=== PATIENT | female | born 1985 | race Caucasian/White ===

== ENCOUNTER 2018-05-08 10:08 | Inpatient (IN) ==
[2018-05-08] MEDS ORDERED: Citric Acid/Sodium Citrate Liq 30 ML UDC PO SCH (12:00)
[2018-05-08] MEDS ORDERED: ceFAZolin Inj 2,000 MG in Sodium Chlor 0.9% Inj 80 ML IV.SIG SCH (12:00)
[2018-05-08 12:10] LABS: Baso % (Auto) 0.3 % (0.0-2.0); Eos # (Auto) 0.1 th/mm3 (0.0-0.4); Eos % (Auto) 0.9 % (0.0-4.0); Hemoglobin 11.8 gm/dL (11.6-15.3); Lymph % (Auto) 18.5 % (9.0-44.0); Mean Corpuscular HGB Conc 34.6 % (32.0-36.0); Mean Corpuscular Hemoglobin 30.3 pg (27.0-34.0); Mean Corpuscular Volume 87.7 fL (80.0-100.0); Mean Platelet Volume 8.4 fL (7.0-11.0); Mono # (Auto) 0.7 th/mm3 (0.0-0.9); Mono % (Auto) 6.5 % (0.0-8.0); Neut % (Auto) 73.8 % (16.0-70.0); Platelet Count 213 th/mm3 (150-450); Red Blood Count 3.87 mil/mm3 (4.00-5.30); Red Cell Distribution Width 14.1 % (11.6-17.2); White Blood Count 10.8 th/mm3 (4.0-11.0)
--- NOTE | 2018-05-08 13:44 | P.HPOB ---
History of Present Illness Service: obstetrics Primary Care Physician: Faby Bingham History of Present Illness: 32 yo with breech infant at 39 2/7 weeks with attempted version if not successful will perform CS - Inpatient Certification I certify that the inpatient services were ordered in accordance with Medicare regulations governing the order. This includes certification that hospital inpatient services are reasonable and necessary and in the case of services not specified as inpatient-only under 42 CFR 419.22(n), that they are appropriately provided as inpatient services in accordance to with the 2-midnight benchmark under 43 CFR 412.3(e) Estimated Total Length of Stay (Days): 2 Plans for Post Hospital Care: Home Review of Systems All other systems reviewed negative except as stated in HPI PMFSH - Medical / Surgical Hx Neg / Unobtainable Medical Problems Denied: Yes - Medical History Medical History: Medical History (Last Updated 05/08/18 @ 13:41 by Alen Amador MD) Knee cartilage, torn, left - Tobacco History Second Hand Smoke Exposure: No Tobacco Use In Past 30 Days: No Medications and Allergies Active Medications: Active Medications Citric Acid/Sodium Citrate (Sodium Citrate/Citric Acid Liq) 30 ml PO FLOWER P[employer] [facility] Stop: 05/12/18 11:59 Cefazolin Sodium 2,000 mg/ (Sodium Chloride) 100 mls @ 200 mls/hr IV.SIG [employer]OWER [employer] [facility] Stop: 05/12/18 11:59 Lactated Ringer's (Lr 1000 Ml Inj) 1,000 mls @ 150 mls/hr IV.CONT .Q6H40M [facility] Allergies Allergy/AdvReac Type Severity Reaction Status Date / Time No Known Allergies Allergy Verified 05/08/18 10:48 Home Medications Medication Instructions Recorded Confirmed Type 05/08/18 History Exam Vital signs: Vital Signs 05/08/18 10:52 Temperature 98.8 F Pulse Rate 83 Respiratory Rate 20 Blood Pressure 119/81 Intake & Output 05/07/18 05/08/18 05/08/18 18:59 06:59 18:59 Weight 83.915 kg - Constitutional no acute distress - Routine HEENT Exam Head: Present: normocephalic - Routine Neck Exam Present: supple - Routine Respiratory Exam Present: CTA bilaterally - Routine Cardiovascular Exam Present: RRR - Routine Abdominal Exam Present: soft, normoactive bowel sounds - Routine Extremities Exam Present: full ROM - Routine Skin Exam Present: intact - Routine Neurological Exam Present: alert, oriented X3 - Additional findings Additional findings: sandra breech on US Results - Labs CBC & Chem 7: 05/08/18 10:49 Labs: Laboratory Results - last 24 hr 05/08/18 05/08/18 10:49 10:49 WBC 10.8 RBC 3.87 L Hgb 11.8 Hct 34.0 L MCV 87.7 MCH 30.3 MCHC 34.6 RDW 14.1 Plt Count 213 MPV 8.4 Neut % (Auto) 73.8 H Lymph % (Auto) 18.5 [place] % (Auto) 6.5 Eos % (Auto) 0.9 Baso % (Auto) 0.3 Neut # (Auto) 8.0 H Lymph # (Auto) 2.0 [place] # (Auto) 0.7 Eos # (Auto) 0.1 Baso # (Auto) 0.0 WBC Differential . Differential Comment Auto diff final Blood Type A Positive Blood Type Recheck Required Antibody Screen Negative Caprini VTE Risk Assessment Caprini VTE Risk Assessment: No/Low Risk (score <= 1) Caprini Risk Assessment Model: Point Value = 1 Point Value = 2 Point Value = 3 Point Value = 5 Age 41-60 Minor surgery BMI > 25 kg/m2 Swollen legs Varicose veins or History of unexplained or recurrent spontaneous Oral contraceptives or hormone replacement Sepsis (< 1 month) Serious lung disease, including pneumonia (< 1 month) Abnormal pulmonary function Acute myocardial infarction Congestive heart failure (< 1 month) History of inflammatory bowel disease Medical patient at bed rest Age 61-74 Arthroscopic surgery Major open surgery (> 45 min) Laparoscopic surgery (> 45 min) Malignancy Confined to bed (> 72 hours) Immobilizing plaster cast Central venous access Age >= 75 History of VTE Family history of VTE Factor V Leiden Prothrombin [id number] Lupus anticoagulant Anticardiolipin antibodies Elevated serum homocysteine Heparin-induced thrombocytopenia Other congenital or acquired thrombophilia Stroke (< 1 month) Elective arthroplasty Hip, pelvis, or leg fracture Acute spinal cord injury (< 1 month) Prophylaxis Regimen: Total Risk Factor Score Risk Level Prophylaxis Regimen 0-1 Low Early ambulation 2 Moderate Order ONE of the following: *Sequential Compression Device (SCD) *Heparin 5000 units SQ BID 3-4 Higher Order ONE of the following medications: *Heparin 5000 units SQ TID *Enoxaparin/Lovenox 40 mg SQ daily (WT < 150 kg, CrCl > 30 mL/min) *Enoxaparin/Lovenox 30 mg SQ daily (WT < 150 kg, CrCl > 10-29 mL/min) *Enoxaparin/Lovenox 30 mg SQ BID (WT < 150 kg, CrCl > 30 mL/min) AND/OR *Sequential Compression Device (SCD) 5 or more Highest Order ONE of the following medications: *Heparin 5000 units SQ TID (Preferred with Epidurals) *Enoxaparin/Lovenox 40 mg SQ daily (WT < 150 kg, CrCl > 30 mL/min) *Enoxaparin/Lovenox 30 mg SQ daily (WT < 150 kg, CrCl > 10-29 mL/min) *Enoxaparin/Lovenox 30 mg SQ BID (WT < 150 kg, CrCl > 30 mL/min) AND *Sequential Compression Device (SCD) Assessment and Plan - Diagnosis (1) Breech Code(s): O32.1XX0 - Maternal care for breech presentation, not applicable or unspecified Status: Acute (2) Breech presentation Code(s): O32.1XX0 - Maternal care for breech presentation, not applicable or unspecified Status: Acute Plan: unsuccessful version for CS (1) Breech Qualifiers: Fetus number: single or unspecified fetus Qualified Code(s): O32.1XX0 - Maternal care for breech presentation, not applicable or unspecified (2) Breech presentation Qualifiers: Fetus number: single or unspecified fetus Qualified Code(s): O32.1XX0 - Maternal care for breech presentation, not applicable or unspecified
[2018-05-08] MEDS ORDERED: Morphine Sulfate PF Inj 5 MG/10 ML Ampul ONE (14:14)
[2018-05-08] MEDS ORDERED: Naloxone Inj 0.4 MG/ML Vial IV.PUSH PRN (14:43)
[2018-05-08 15:20] LABS: Cord Arterial Blood HCO3 26.2
[2018-05-08] MEDS ORDERED: Simethicone 80 MG Chew Tablet PO PRN (15:21)
[2018-05-08] MEDS ORDERED: Oxytocin 30 Units/500ml Premix 30 UNITS/500 ML BAG IV.SIG ONE (15:21)
--- NOTE | 2018-05-08 15:24 | P.OBDELI ---
Procedure Note - Pre Op Diagnosis (1) Breech presentation (2) Failed external cephalic version Performed by: Alen Amador MD Procedure: Primary Low Transverse Section Indication for Delivery: malposition Informed Consent Obtained: For anesthesia, For procedure Confirmed Correct: Patient, Procedure, Site, Time-out taken Anesthesia: Spinal Monitoring During Procedure: Blood pressure monitoring, bus monitor Urinary Catheter: Inserted using sterile technique, To dependent drainage Sterile Preparation: Duraprep Position: Supine with wedge to left side - Operative Features Skin Incision: Pfannenstiel Uterine Incision: Low transverse w/knife / blunt ext Membranes Ruptured: Artificially Presentation: Breech Status of : Viable Placenta Delivered: Intact Medications: Antibiotics, Oxytocin Procedure Tolerated: Well Maternal Condition: Stable Baby Condition: Stable - Infant Infant: Male, Single
--- NOTE | 2018-05-08 16:06 | MP ---
cc: Alen Amador MD DATE OF OPERATION: 05/08/2018 PROCEDURE: Primary low transverse section. PREOPERATIVE DIAGNOSES: Failed external cephalic version sandra breech presentation. POSTOPERATIVE DIAGNOSES: Failed external cephalic version sandra breech presentation. SURGEON: Alen Amador MD ESTIMATED BLOOD LOSS: 500 mL COMPLICATIONS: None. FINDINGS: Live male infant, sandra breech presentation. Apgars are recorded with nursery. ANESTHESIA: Spinal, Dimitri Mccullough. PROCEDURE IN DETAIL: After informed consent, the patient was taken to the operating room where she was placed under spinal anesthesia. Prior to this, the patient had an attempted cephalic version, 3 attempts, none of which could elevate the buttocks out of the pelvis, so the patient had been counseled and prepped and draped and brought to the operating room where she was prepped and draped in normal sterile fashion. Spinal was working well. Timeout was taken. A Pfannenstiel skin incision was carried sharply through skin to the fascia. The fascia nicked in the midline and the incision extended laterally using [place] scissors. Rectus muscle were dissected off the fascia with blunt and sharp dissection. Rectus muscle were in the midline. Peritoneum was entered bluntly with the finger, the incision extended laterally using blunt traction. A hand was placed in the abdomen. The uterus was noted to be midline. A bladder flap was created by dissecting the bladder off the lower uterine segment. A low transverse uterine incision was then made, carried out sharply into the uterine cavity, clear fluid was noted. A hand was placed into the uterus and the buttocks was brought to the incision and using fundal pressure, the 's leg had to be delivered first, the left leg, then the right leg was delivered. The baby was delivered to the level of the scapulas. The was rotated to the right and left arm was flexed across the chest. The infant was rotated to the left and the right arm was flexed across to the chest. Using Mauriceau maneuver and fundal pressure, the head delivered without difficulty. The attempt to wait 45 seconds was shortened secondary to the baby not taking a quick breath, despite drying and stimulating the baby still did not breathe, so the cord was clamped and cut and then was handed to pediatrics in attendance. Cord blood was collected. Placenta and cord gas were collected. Placenta was delivered manually. Uterus exteriorized, wiped free from all remaining products of conception. Uterine incision was then closed in a running locked stitch with chromic suture. Good hemostasis was achieved. The uterus was placed back in the abdomen and noted to be hemostatic. The peritoneum was closed with Vicryl suture. The fascia was closed with Vicryl suture, and the skin was closed with subcuticular stitch. Each layer was noted to be hemostatic prior to the closure and the patient tolerated the procedure well. Alen Amador MD JWM/ct , 03:28 PM , 03:36 PM
[2018-05-08] MEDS ORDERED: Oxytocin 30 Units/500ml Premix 30 UNITS/500 ML BAG ONE (16:37)
[2018-05-08 20:02] LABS: Bacteria,Urine Rare /hpf; Bilirubin,Urine Negative (Negative); Clarity,Urine Hazy (Clear); Color,Urine Yellow (Yellw/Straw); Glucose,Urine (UA) Negative (Negative); Leukocyte Esterase,Urine Large (Negative); Nitrite,Urine Negative (Negative); Specific Gravity,Urine 1.012 (1.002-1.035); Squamous Epithelial Cell,Urine 2 /hpf (0-5)
[2018-05-08 20:10] LABS: Amphetamine Screen,Urine Neg (Neg); Barbiturate Screen,Urine Neg (Neg); Cannabinoid Screen,Urine Neg (Neg); Cocaine Screen,Urine Neg (Neg)
[2018-05-08 20:11] LABS: Opiate Screen,Urine Neg (Neg)
[2018-05-08] MEDS ORDERED: Oxytocin 30 Units/500ml Premix 30 UNITS/500 ML BAG IV.SIG PRN (20:21)
[2018-05-09] MEDS: Ibuprofen 600 MG Tablet PO PRN ×3 (06:51→22:37)
[2018-05-09 07:23] LABS: Baso % (Auto) 0.2 % (0.0-2.0); Eos % (Auto) 0.1 % (0.0-4.0); Hematocrit 27.4 % (35.0-46.0); Hemoglobin 9.9 gm/dL (11.6-15.3); Lymph # (Auto) 2.4 th/mm3 (1.0-4.8); Lymph % (Auto) 15.3 % (9.0-44.0); Mean Corpuscular Hemoglobin 31.2 pg (27.0-34.0); Mean Corpuscular Volume 86.7 fL (80.0-100.0); Mean Platelet Volume 7.5 fL (7.0-11.0); Mono % (Auto) 6.7 % (0.0-8.0); Neut # (Auto) 12.1 th/mm3 (1.8-7.7); Neut % (Auto) 77.7 % (16.0-70.0); Platelet Count 187 th/mm3 (150-450); Red Blood Count 3.16 mil/mm3 (4.00-5.30); Red Cell Distribution Width 13.9 % (11.6-17.2); White Blood Count 15.6 th/mm3 (4.0-11.0)
[2018-05-09 08:19] LABS: Lymphocytes 14 % (9-44); Monocytes 4 % (0-8); Myelocytes 1 % (0-0)
[2018-05-09 08:20] LABS: Platelet Estimate Normal (Normal); Platelet Morphology Normal (Normal)
--- NOTE | 2018-05-09 09:09 | P.PNOB ---
Subjective Post day: 1 Interval history: doing well ppd #1 for CS for breech, breast feeding Objective Vital Signs/I&O: Vital Signs 05/08/18 10:52 05/08/18 15:25 05/08/18 15:39 Temperature 98.8 F 97.8 F Pulse Rate 83 19 L 79 Respiratory Rate 20 17 19 Blood Pressure 119/81 119/56 L 116/53 L 05/08/18 15:47 05/08/18 16:01 05/08/18 16:16 Temperature Pulse Rate 74 59 L Respiratory Rate 18 16 Blood Pressure 131/55 L 117/68 131/79 05/08/18 16:22 05/08/18 16:31 05/08/18 16:32 Temperature Pulse Rate 57 L 54 L Respiratory Rate 20 18 Blood Pressure 114/74 05/08/18 16:33 05/08/18 17:31 05/08/18 19:58 Temperature 97.7 F 97.8 F Pulse Rate 57 L 62 Respiratory Rate 18 18 Blood Pressure 115/76 127/76 05/08/18 20:51 05/09/18 00:00 05/09/18 02:00 Temperature 97.5 F L 98.6 F Pulse Rate 71 Respiratory Rate 18 18 Blood Pressure 127/71 05/09/18 05:00 05/09/18 07:54 Temperature 98.9 F 97.6 F Pulse Rate 82 70 Respiratory Rate 17 20 Blood Pressure 118/68 106/64 Intake & Output 05/08/18 05/09/18 05/09/18 18:59 06:59 18:59 Weight 83.915 kg Result Diagrams: 05/09/18 07:11 Objective Remarks: GENERAL: Well-nourished, well-developed patient. CARDIOVASCULAR: Regular rate and rhythm without murmurs, gallops, or rubs. RESPIRATORY: Breath sounds equal bilaterally. No accessory muscle use. ABDOMEN/GI: Abdomen soft, non-tender. Fundus: Firm, non-tender at umbilicus. GENITOURINARY: Light to moderate bleeding. EXTREMITIES: No cyanosis or edema, non-tender, without signs of DVT. Medications and IVs: Active Medications Citric Acid/Sodium Citrate (Sodium Citrate/Citric Acid Liq) 30 ml PO [employer] [facility] Stop: 05/12/18 11:59 Last Admin: 05/08/18 14:15 Dose: 30 ml Diphenhydramine HCl (Benadryl) 50 mg PO Q6H PRN PRN Reason: MILD TO MODERATE ITCHING Stop: 05/09/18 14:42 Diphenhydramine HCl (Benadryl Inj) 25 mg IV.PUSH Q6H PRN PRN Reason: MILD TO MODERATE ITCHING Stop: 05/09/18 14:42 Diphtheria/Pertussis/Tetanus Vacc (Boostrix Vaccine Inj) 0.5 ml IM .ONCE ONE Stop: 05/09/18 16:01 Cefazolin Sodium 2,000 mg/ (Sodium Chloride) 100 mls @ 200 mls/hr IV.SIG [facility] Stop: 05/12/18 11:59 Lactated Ringer's (Lr 1000 Ml Inj) 1,000 mls @ 150 mls/hr IV.CONT .Q6H40M [facility] Last Admin: 05/08/18 14:16 Dose: 150 mls/hr Oxytocin (Pitocin 30 Units/Ns 500 Ml Premix) 30 units in 500 mls @ 100 mls/hr IV.SIG PRN PRN PRN Reason: Heavy bleeding Stop: 05/09/18 20:20 Last Admin: 05/08/18 16:38 Dose: 100 mls/hr Lactated Ringer's (Lr 1000 Ml Inj) 1,000 mls @ 100 mls/hr IV.CONT .Q10H [facility] Stop: 05/09/18 16:20 Last Admin: 05/08/18 22:10 Dose: 100 mls/hr Ibuprofen (Motrin) 600 mg PO Q6HR PRN PRN Reason: cramping Last Admin: 05/09/18 06:51 Dose: 600 mg Ketorolac Tromethamine (Toradol Inj) 30 mg IM Q6H PRN PRN Reason: SEE LABEL COMMENTS Measles/Mumps/Rubella Vaccine Live (M-M-R Ii Vaccine Inj) 0.5 ml SQ .ONCE ONE Stop: 05/09/18 16:01 Miscellaneous Information (Misc Nursing Information) 1 each OTHER UNSCH PRN PRN Reason: SEE LABEL COMMENTS Stop: 05/09/18 14:42 Miscellaneous Information (Misc Nursing Information) 1 each OTHER UNSCH PRN PRN Reason: SEE LABEL COMMENTS Stop: 05/09/18 14:42 Naloxone HCl (Narcan Inj) 0.4 mg IV.PUSH UNSCH PRN PRN Reason: SEE LABEL COMMENTS Stop: 05/09/18 14:42 Ondansetron HCl (Zofran Inj) 4 mg IV.PUSH Q6H PRN PRN Reason: NAUSEA OR VOMITING Oxycodone/Acetaminophen (Percocet 5/325 Mg) 1 tab PO Q4H PRN PRN Reason: PAIN SCALE 3 TO 5 Oxycodone/Acetaminophen (Percocet 5/325 Mg) 2 tab PO Q4H PRN PRN Reason: PAIN SCALE 6 TO 10 Simethicone (Mylicon Chew) 80 mg PO QID PRN PRN Reason: FLATULENCE Sodium Chloride (Ns Flush) 2 ml IV.FLUSH BID [facility] Last Admin: 05/09/18 08:01 Dose: Not Given Sodium Chloride (Ns Flush) 2 ml IV.FLUSH PRN PRN PRN Reason: FLUSH AFTER USING IV ACCESS Assessment and Plan - Diagnosis (1) Breech Code(s): O32.1XX0 - Maternal care for breech presentation, not applicable or unspecified Status: Acute (2) Breech presentation Code(s): O32.1XX0 - Maternal care for breech presentation, not applicable or unspecified Status: Acute Plan: unsuccessful version for CS - Plan dc in AM (1) Breech Qualifiers: Fetus number: single or unspecified fetus Qualified Code(s): O32.1XX0 - Maternal care for breech presentation, not applicable or unspecified (2) Breech presentation Qualifiers: Fetus number: single or unspecified fetus Qualified Code(s): O32.1XX0 - Maternal care for breech presentation, not applicable or unspecified
[2018-05-09] MEDS ORDERED: Diphtheria/Tetanus/Pertussis Vaccine Inj 0.5 ML Syringe IM ONE (16:00)
[2018-05-09] MEDS ORDERED: Measles/Mumps/Rubella Vaccine Inj 0.5 ML Vial SQ ONE (16:00)
--- NOTE | 2018-05-10 07:34 | P.PNOB ---
Subjective Post day: 2 Interval history: doing well post CS day #2 Objective Vital Signs/I&O: Vital Signs 05/09/18 07:54 05/09/18 12:00 05/09/18 19:46 Temperature 97.6 F 98.0 F 98.9 F Pulse Rate 70 78 102 H Respiratory Rate 20 20 20 Blood Pressure 106/64 116/66 155/83 H Result Diagrams: 05/09/18 07:11 Objective Remarks: GENERAL: Well-nourished, well-developed patient. ABDOMEN/GI: Abdomen soft, non-tender. Fundus: Firm, non-tender at umbilicus. GENITOURINARY: Light to moderate bleeding. EXTREMITIES: No cyanosis or edema, non-tender, without signs of DVT. Medications and IVs: Active Medications Citric Acid/Sodium Citrate (Sodium Citrate/Citric Acid Liq) 30 ml PO [employer] [facility] Stop: 05/12/18 11:59 Last Admin: 05/08/18 14:15 Dose: 30 ml Cefazolin Sodium 2,000 mg/ (Sodium Chloride) 100 mls @ 200 mls/hr IV.SIG [employer] [facility] Stop: 05/12/18 11:59 Lactated Ringer's (Lr 1000 Ml Inj) 1,000 mls @ 150 mls/hr IV.CONT .Q6H40M [facility] Last Admin: 05/10/18 07:10 Dose: Not Given Ibuprofen (Motrin) 600 mg PO Q6HR PRN PRN Reason: cramping Last Admin: 05/09/18 22:37 Dose: 600 mg Ketorolac Tromethamine (Toradol Inj) 30 mg IM Q6H PRN PRN Reason: SEE LABEL COMMENTS Ondansetron HCl (Zofran Inj) 4 mg IV.PUSH Q6H PRN PRN Reason: NAUSEA OR VOMITING Oxycodone/Acetaminophen (Percocet 5/325 Mg) 1 tab PO Q4H PRN PRN Reason: PAIN SCALE 3 TO 5 Oxycodone/Acetaminophen (Percocet 5/325 Mg) 2 tab PO Q4H PRN PRN Reason: PAIN SCALE 6 TO 10 Simethicone (Mylicon Chew) 80 mg PO QID PRN PRN Reason: FLATULENCE Sodium Chloride (Ns Flush) 2 ml IV.FLUSH BID [facility] Last Admin: 05/09/18 23:42 Dose: Not Given Sodium Chloride (Ns Flush) 2 ml IV.FLUSH PRN PRN PRN Reason: FLUSH AFTER USING IV ACCESS Assessment and Plan - Diagnosis (1) Breech Code(s): O32.1XX0 - Maternal care for breech presentation, not applicable or unspecified Status: Acute (2) Breech presentation Code(s): O32.1XX0 - Maternal care for breech presentation, not applicable or unspecified Status: Acute Plan: CS pod #2 DC home - Plan dc in AM (1) Breech Qualifiers: Fetus number: single or unspecified fetus Qualified Code(s): O32.1XX0 - Maternal care for breech presentation, not applicable or unspecified (2) Breech presentation Qualifiers: Fetus number: single or unspecified fetus Qualified Code(s): O32.1XX0 - Maternal care for breech presentation, not applicable or unspecified
[2018-05-10] MEDS: Ibuprofen 600 MG Tablet PO PRN (08:13)
--- NOTE | 2018-05-10 08:55 | P.DS ---
Date of admission: 05/08/18 10:08 Primary care physician: Faby Bingham Brief History from admission: 32 yo with breech at 39 2/7 weeks with attempted version if not successful will perform CS. Patient had CS for Breech DS: Diagnosis - Discharge Diagnosis (1) Breech Status: Acute (2) Breech presentation Status: Acute (3) delivery delivered Status: Acute DS: Medications - Discharge Medications Prescriptions: oxycodone-acetaminophen 2 tab PO Q4H PRN 3 Days #10 tab PRN Reason: Pain Scale 6 To 10 DS: Summary Hospital Course: attempted version unsuccessful and pt has CS and DC home day #2 - Time Spent with Patient Total time spent providing and/or coordinating discharge services: Less than 30 minutes Exam Vital signs: Vital Signs 05/09/18 12:00 05/09/18 19:46 05/10/18 08:00 Temperature 98.0 F 98.9 F 98.3 F Pulse Rate 78 102 H 79 Respiratory Rate 20 20 20 Blood Pressure 116/66 155/83 H 126/78 - Constitutional no acute distress - Routine Neck Exam Present: supple - Routine Respiratory Exam Present: CTA bilaterally - Routine Cardiovascular Exam Present: RRR - Routine Abdominal Exam Present: soft, normoactive bowel sounds - Routine Extremities Exam Present: full ROM Results Procedures completed during hospitalization: CS only Discharge Plan - Discharge Disposition Patient Disposition: 01 Discharge Home - Discharge Condition Condition: Good - Discharge Order Discharge Orders: Discharge Order (Routine); Ordered 05/10/18 Ordered By: Alen Amador - Physicians Team Primary Care Provider: Faby Bingham Attending Provider: Alen Amador - Rxs /Orders / Referrals /Forms Prescriptions: New oxycodone-acetaminophen 5-325 mg Tablet 2 tab PO Q4H PRN (Reason: Pain Scale 6 To 10) 3 Days Qty: 10 RF: 0 No Action DAILY Referrals: Alen Amador MD [Physician] - See Instructions (1-2 weeks) Faby Bingham MD [Primary Care Provider] - See Instructions - Post Discharge Care Plan Care Plan Goals: Congratulations on your new baby! We want your recovery to be roth and trouble free. Please Report the Following Symptoms to Your Doctor: -Temperature above 100.5 degrees -Redness of incision or excessive or foul smelling drainage -Unusual pain or calf pain -Increased vaginal bleeding -Painful or difficulty urinating -Feelings of extreme sadness or anxiety Goals to Promote Your Health * To prevent worsening of your condition and complications * To maintain your health at the optimal level Directions to Meet Your Goals Take your medications as prescribed Follow your dietary instruction Follow activity as directed Ensure plenty of rest for recovery Drink fluids for hydration Keep your appointments as scheduled Take your immunizations and boosters as scheduled If your symptoms worsen call your OB Physician, or go to an Urgent Care Center or Emergency Room Smoking is Dangerous to your health. Avoid second hand smoke Call the 24-hour crisis hotline for domestic abuse at
== END 2018-05-10 12:45 | disposition home or self-care (01) ==
LOC: H2E 10:08 → H1EA 17:05
PROVIDERS: ADMIT Obstetrics & Gynecology; ATTEND Obstetrics & Gynecology